=== PATIENT | female | born 1960 | race Caucasian/White ===

== ENCOUNTER 2020-02-13 22:42 | Emergency (ER) | payer BC ==
[~2020-02-13] VITALS: Ht 167.6 cm; Wt 59.1 kg
[2020-02-13 22:48] VITALS: Ht 167.6 cm; Wt 59.1 kg
[2020-02-13] MEDS ORDERED: LISINOPRIL (22:52)
[2020-02-13] MEDS ORDERED: GLIPI (22:52)
[2020-02-13] MEDS ORDERED: GLUCOPHAGE1000 MG PO (22:52)
[2020-02-13] MEDS ORDERED: ATENOLOL PO (22:53)
[2020-02-14 00:11] VITALS: BP 133/89
== END 2020-02-14 00:11 | disposition home or self-care (01) ==
LOC: D.ER 22:42
DX: M15.9 Polyosteoarthritis, unspecified (principal); M81.0 Age-related osteoporosis without current pathological fracture; E11.9 Type 2 diabetes mellitus without complications; Z79.84 Long term (current) use of oral hypoglycemic drugs; I10 Essential (primary) hypertension; E78.5 Hyperlipidemia, unspecified